=== PATIENT | male | born 1990 | race Caucasian/White ===

== ENCOUNTER 2025-02-10 12:41 | Emergency (ER) | payer OTHER, SELFPAY ==
--- NOTE | 2025-02-10 12:42 | ED_ITS ---
HPI - Dental/Oral General Chief complaint: Dental/Oral Stated complaint: tooth pain Time Seen by Provider: 02/10/25 12:42 Source: patient Mode of arrival: ambulatory Limitations: no limitations History of Present Illness HPI Narrative: Tra is a 34-year-old male patient presenting to the clinic today with complaints of left lower dental pain. He reports 2 days ago he had the wisdom tooth removed. Reports spitting up some yellow drainage in a thinks is coming from the tooth. Also reporting pain and swelling over the tooth. Related Data Allergies Allergy/AdvReac Type Severity Reaction Status Date / Time No Known Allergies Allergy Verified 02/10/25 12:53 Review of Systems Review of Systems: Pertinent positives per HPI. Patient denies any fever, chills, rash, headache, visual changes, dizziness, cough, runny nose, sore throat, shortness of breath, chest pain, palpitations, nausea, vomiting, diarrhea, constipation, abdominal pain, or any urinary issues. PMFSH Comments At the time of my signature, I reviewed and agree with the nursing past medical, surgical, social, and family history. There is no relevant family history pertinent to the patient complaint. Exam Narrative: General: Well-developed, well nourished, in no apparent distress Head: Normocephalic, atraumatic Eyes: Pupils equally round and reactive to light bilaterally, EOM intact, sclera and conjunctive clear, no discharge, lids normal Ears: TMs intact and clear, ear canals clear, no drainage, grossly hearing normal. Nose: Nares patent, no discharge, no inflammation, no sinus tenderness. Mouth: Oropharynx without lesions or masses, poor dentition, MMM. Stitches with mild redness and swelling to the left posterior molar where wisdom tooth was removed Neck: Supple, trachea midline, no enlargement of anterior or posterior cervical nodes, no thyroid masses or goiter palpable. Cardio: Regular rate and rhythm, s1 and s2 normal, no murmur appreciated. Resp: Clear to auscultation bilaterally anteriorly and posteriorly, no rhonchi, rales, wheezing or rubs Course Course Emergency Course: Portions of this record may have been created with voice recognition software. Level of Care: Express Care Visit Vital Signs Vital signs: Vital Signs Temperature 36.6 C 02/10/25 12:54 Pulse Rate 65 02/10/25 12:54 Respiratory Rate 18 02/10/25 12:54 Blood Pressure 168/74 H 02/10/25 12:54 Pulse Oximetry 100 02/10/25 12:54 Oxygen Delivery Room Air 02/10/25 12:54 Temperature 36.6 C 02/10/25 12:54 Pulse Rate 65 02/10/25 12:54 Respiratory Rate 18 02/10/25 12:54 Blood Pressure 168/74 H 02/10/25 12:54 Pulse Oximetry 100 02/10/25 12:54 Oxygen Delivery Room Air 02/10/25 12:54 Vital signs reviewed MDM - Dental/Oral MDM Narrative Medical decision making narrative: At the time of visit patient is resting comfortably on the exam table. Patient appears to be nontoxic. Plan: I suspect patient has dental pain status post wisdom tooth removal. Will cover for infection as he noticed some yellow drainage coming from the area and feels as though there was a bad taste in his mouth. Supportive measures were discussed with the patient and they voiced understanding discharge instructions and agrees to treatment plan. Return precautions reviewed Differential Diagnosis Differential diagnosis: Likely gingival abscess, dental caries, toothache, dental abscess, fracture of tooth and aphthous ulcer Discharge Plan Discharge Clinical Impression: Pain, dental [place] teeth removed Qualifiers: Tooth loss class: unspecified tooth loss Qualified Code(s): K08.409 - Partial loss of teeth, unspecified cause, unspecified class Patient Disposition: Home Condition: Stable Instructions: Antibiotic Form, Toothache (ED) Additional Instructions: Take prescription medications only as prescribed-amoxicillin Increase fluids and stay well hydrated Tylenol/motrin for pain/fever May apply cool compress to the affected area to help alleviate pain and swelling May apply Orajel to the affected area to help alleviate pain Follow-up with your dentist as soon as possible Go to the ED if you develop a worsening in your condition- high fever not controlled by Tylenol or Motrin, dehydration, weakness, lethargy, shortness of breath, or chest pain. Follow up with your PCP in 3-5 days if symptoms persist. Patient Language: Lao Prescriptions: New amoxicillin 875 mg tablet 875 mg PO Q12H 10 Days Qty: 20 0RF Follow-up/Referrals: UNKNOWN,DOCTOR [Primary Care Provider] - Time of Disposition: 13:[address] [facility] Nursing Documentation ED [facility] nursing documentation: reviewed/agree
--- OUTSIDE RECORDS SUMMARY | 2025-02-10 12:49 | XMS_ITS | Encounter Summary ---
Author Organization [facility] nter Address [address] [place] [address] Care Team Providers Care Information Systems Coordinator Name Role Phone Braden Temple MD Primary Care Provider [phone] Encounter Details Date Type Department Care Team ([facility] st Contact Info) Description 03/16/2019 Transcribe Orders [facility] [address] [place] [address] Penelope Garza MD [address] [place] [address] Injury of right foot, initial encounter (Primary Dx) Social History Tobacco Use Types Packs/Day Years Used Date Smoking Tobacco: Never Assessed Sex and Gender Information Value Date Recorded Sex Assigned at Male 03/16/2019 5:21 PM CDT 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 Narrative 03/17/2019 8:33 AM CDT XR FOOT 3 VW RIGHT : 03/16/2019 5:32 PM DICTATING PHYSICIAN: COLT LINDSAY MD, [facility]. HISTORY: As below. ADDITIONAL TECHNOLOGIST HISTORY: Right foot injury x 3 days;pain medial aspect ;1-2nd metatarsals;bruising and swelling COMPARISON: None. TECHNIQUE: AP, Oblique, and lateral projections of the right foot were obtained. FINDINGS: Right: There is no evidence of acute fracture, subluxation or radiopaque foreign body. Procedure Note Colt Lindsay MD - 03/17/2019 XR FOOT 3 VW RIGHT : 03/16/2019 5:32 PM DICTATING PHYSICIAN: COLT LINDSAY MD, [facility]. HISTORY: As below. ADDITIONAL TECHNOLOGIST HISTORY: Right foot injury x 3 days;pain medialaspect ;1-2nd metatarsals;bruising and swelling COMPARISON: None. TECHNIQUE: AP, Oblique, and lateral projections of the right foot wereobtained. FINDINGS: Right: There is no evidence of acute fracture, subluxation or radiopaque foreignbody. IMPRESSION: No evidence of acute osseous abnormality. Penelope Garza MD IMG DIAGNOSTIC IMAGING OR DERABLES Final Result documented in this encounter Visit Diagnoses Diagnosis Injury of right foot, initial encounter- Primary Injury of right foot, initial encounter documented in this encounter Care Teams Information Systems Coordinator Relationship Specialty Start Date End Date Braden Temple MD [address] [place] [id number] PCP - General Family Medicine 10/18/24 documented as of this encounter
--- OUTSIDE RECORDS SUMMARY | 2025-02-10 12:49 | XMS_ITS | Clinical Summary ---
Author Organization [facility] Address [address] [place] [address] Care Team Providers Care Appliance Service Representative Name Role Phone Sony Scanlon DO Primary Care Provider [phone] Allergies No known active allergies Medications No known medications Social History Tobacco Use Types Packs/Day Years Used Date Smoking Tobacco: Every Day Smokeless Tobacco: Never Alcohol Use Standard Drinks/Week Comments Never 0 (1 standard drink = 0.6 oz pur e alcohol) AUDIT-C Answer Date Recorded Frequency of Alcohol Consumption Never 03/04/2020 Average Number of Drinks Not on file 020 Frequency of Binge Drinking Not on file 05/2020 Sex and Gender Information Value Date Recorded Sex Assigned at Not on file 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 Gender Identity Not on file Sexual Orientation Not on file Last Filed Vital Signs Vital Sign Reading Time Taken Comments Blood Pressure 158/91 10/18/2021 11:40 AM SCHOOL LUNCH MANAGER Pulse 79 10/18/2021 11:40 AM SCHOOL LUNCH MANAGER Temperature 36.7 C (98.1 F) 10/18/2021 11:40 AM SCHOOL LUNCH MANAGER Respiratory Rate 18 10/18/2021 11:40 AM SCHOOL LUNCH MANAGER Oxygen Saturation 98% 10/18/2021 11:40 AM SCHOOL LUNCH MANAGER Inhaled Oxygen Concentration - - Weight 112 kg (247 lb) 10/18/2021 11:40 AM SCHOOL LUNCH MANAGER Height 172.7 cm (5' 8 ) 10/18/2021 11:40 AM SCHOOL LUNCH MANAGER Body Mass Index 37.56 10/18/2021 11:40 AM SCHOOL LUNCH MANAGER Plan of Treatment Health Maintenance Due Date Last Done Comments Annual Physical 1994 DTaP, Tdap and Td Vaccines (6 - Tdap) 2002 1997, 01/05/1993, 1991, Additional history exists Hepatitis C 2009 Hepatitis B Vaccines (1 of 3 - 19+ 3-dose series) 2010 Pneumococcal Vaccine: Pediatrics (0 to 5 Years) and At-Risk Patients (6 to 49 Years) (1 of 2 - PCV) 2010 COVID-19 Vaccine ( - 2023- season) 2024 HPV Vaccines Aged Out No longer eligi ble based on patient's age to complete this topic Meningococcal B Vaccine Aged Out No l onger eligible based on patient's age to complete this topic Meningococcal Vaccine Aged Out No reyna dell eligible based on patient's age to complete this topic RSV Immunizations Under 20 Months Aged Out No longer eligible based on patient's age to complete this topic Insurance Care Teams Appliance Service Representative Relationship Specialty Start Date End Date Sony Scanlon DO [address] [place] [id number] PCP - General FAMILY PRACTICE 06/11/21
--- OUTSIDE RECORDS SUMMARY | 2025-02-10 12:49 | XMS_ITS | Clinical Summary ---
Author Organization [facility] Address [address] [place] [address] Phone Care Team Providers Care Freight Agent Name Role Phone Penelope Garza MD Primary Care Provider [phone] Allergies No known active allergies Medications No known medications Social History Tobacco Use Types Packs/Day Years Used Date Smoking Tobacco: Never Assessed Sex and Gender Information Value Date Recorded Sex Assigned at Not on file Legal Sex Male 9:24 PM CDT Gender Identity Not on file Sexual Orientation Not on file Last Filed Vital Signs Vital Sign Reading Time Taken Comments Blood Pressure 144/65 07/08/2019 10:56 PM CDT Pulse 74 07/08/2019 10:56 PM CDT Temperature 36.9 C (98.4 F) 07/08/2019 9:26 PM CDT Respiratory Rate 18 07/08/2019 10:56 PM CDT Oxygen Saturation 98% 07/08/2019 10:56 PM CDT Inhaled Oxygen Concentration - - Weight 103.4 kg (228 lb) 07/08/2019 9:26 PM CDT Height 172.7 cm (5' 8 ) 07/08/2019 9:26 PM CDT Body Mass Index 34.67 07/08/2019 9:26 PM CDT Plan of Treatment Not on file [place] [address] Care Teams Freight Agent Relationship Specialty Start Date End Date Penelope Garza MD [address] [place] [address] PCP - General Family Medicine 07/07/19
--- OUTSIDE RECORDS SUMMARY | 2025-02-10 12:49 | XMS_ITS | Clinical Summary ---
Author Organization [facility] nter Address [address] [place] [address] Care Team Providers Care Crystallographer Name Role Phone Braden Temple MD Primary Care Provider [phone] Allergies No known active allergies Medications No known medications Active Problems Problem Noted Date Diagnosed Date Annual physical exam 10/19/2024 Class 2 obesity due to exces s calories without serious comorbidity with body mass index (BMI) of 38.0 to 38.9 in adult 10/19/2024 Family history of prostate cancer 10/19/2024 Overview (10/19/2024): Maternal grandfather Elevated blood pressure read ing without diagnosis of hypertension 10/19/2024 Assessment & Plan (10/19/2024 9:41 AM TOP ICER): Discussed lifestyle changes and indications for starting medication. Attention and concentration deficit 10/19/2024 Assessment & Plan (10/19/2024 9:43 AM TOP ICER): He was told today that he needs to get a ADHD confirmation diagnosis from a psychiatrist since there are no records to review from the initial doctor whom diagnosed him. 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 Immunizations Immunization Administration Dates Next Due DTaP 1997, 3,1991,1991,1 10/16/1990 Hep B, Adolescent or Pediatric 11/29/2002,2001,05/10/2002 HiB 10/16/1992,06/04/1992,1991 ,1991 MMR 1997,10/16/1992 OPV 1997,01/05/1993,1991 ,1991 Tdap 05/17/2007 Family History Medical History Relation Name Comments Prostate cancer Maternal Grandfather Alcohol abuse Paternal Grandfather Heart disease Paternal Grandfather Stroke Paternal Grandfather Relation Name Status Comments Father Alive Maternal Grandfather Mother Alive Paternal Grandfather Social History Tobacco Use Types Packs/Day Years Used Date Smoking Tobacco: Former Cigarettes Passive Smoke Exposure: Never Smokeless Tobacco: Never Tobacco Cessation:Counseling Given: No Alcohol Use Standard Drinks/Week Comments Never 0 (1 standard drink = 0.6 oz pur e alcohol) Sex and Gender Information Value Date Recorded Sex Assigned at Male 03/16/2019 5:21 PM CDT Legal Sex Male 6:29 PM TOP ICER Gender Identity Not on file Sexual Orientation Not on file Last Filed Vital Signs Vital Sign Reading Time Taken Comments Blood Pressure 148/72 10/19/2024 9:04 AM TOP ICER Pulse 77 10/19/2024 9:04 AM TOP ICER Temperature 36.3 C (97.3 F) 10/19/2024 9:04 AM TOP ICER Respiratory Rate 18 10/19/2024 9:04 AM TOP ICER Oxygen Saturation 95% 10/19/2024 9:04 AM TOP ICER Inhaled Oxygen Concentration - - Weight 118 kg (260 lb 2.3 oz) 10/19/2024 9:04 AM TOP ICER Height 174 cm (5' 8.5 ) 10/19/2024 9:04 AM TOP ICER Body Mass Index 38.98 10/19/2024 9:04 AM TOP ICER Plan of Treatment Health Maintenance Due Date Last Done Comments Preventive Care and Screenin g: Influenza Immunization (Season Ended) 2025 Insurance [facility] CHOICE/SELECT/OPTION/PPO Care Teams Crystallographer Relationship Specialty Start Date End Date Braden Temple MD [address] [address] PCP - General Family Medicine 10/18/24
--- OUTSIDE RECORDS SUMMARY | 2025-02-10 12:49 | XMS_ITS | Clinical Summary ---
Author Organization [facility] Address [address] [place] [address] Care Team Providers Care Sign Poster Name Role Phone Unavailable Primary Care Provider Unavailabl e Social History Tobacco Use Types Packs/Day Years Used Date Smoking Tobacco: Never Assessed Sex and Gender Information Value Date Recorded Sex Assigned at Not on file Gender Identity Not on file Sexual Orientation Not on file Plan of Treatment Health Maintenance Due Date Last Done Comments Annual Physical 1991 Annual Depression Screen 2003 COVID-19 Vaccine (2023-2 5 season) 2024 Influenza Vaccine (Season Ended) 2025 Pneumococcal Vaccine: to 49yrs Aged Out No longer eligible b ased on patient's age to complete this topic
[2025-02-10 12:54] VITALS: BP 168/74; PULSE 65; RESP 18; TEMP 36.6; O2SAT 100
== END 2025-02-10 13:20 | disposition home or self-care (01) ==
PROVIDERS: Emergency Provider Nurse Practitioner Family
DX: G89.18 Other acute postprocedural pain (principal); Z98.818 Other dental procedure status
CPT/HCPCS: 99203; G0463